=== PATIENT | female | born 1995 | race Two or more races ===

== ENCOUNTER 2021-12-02 21:55 | Emergency (ER) | payer MEDICAID, OTHER ==
[~2021-12-02] VITALS: Ht 162.6 cm; Wt 50.3 kg
[2021-12-02 21:59] VITALS: BP 124/82
== END 2021-12-03 01:22 | disposition home or self-care (01) ==
LOC: ER 21:58
DX: B34.9 Viral infection, unspecified (principal); Z20.822 Contact with and (suspected) exposure to COVID-19
CPT/HCPCS: 36415; 87426